=== PATIENT | female | born 1950 | race Caucasian/White ===

== ENCOUNTER 2023-11-07 12:06 | Emergency (ER) | payer MEDICARE, SELFPAY ==
[2023-11-07 12:10] VITALS: BP 120/72
--- NOTE | 2023-11-07 12:53 | ED.GENMED ---
Addendum entered and electronically signed by Jose Jaramillo PA-C 11/10/23 07:13:
MSSA on wound culture. On Doxy. No change needed.
Original Note:
History of Present Illness
General
Chief Complaint: Skin Problem
Source: patient and family
Exam Limitations: none
Time Seen by Provider: 11/07/23 12:32
Travel History
Have you had any contact with someone who has COVID-19?: No
Do you have any symptoms of coronavirus? Fever > 100 degrees, chills, cough, shortness of breath, sore throat, loss of taste or smell, muscle aches, or headache?: No
History of Present Illness
History of Present Illness:
73-year-old female who presents with a draining low back wound. The patient admits that she has had it for 10 months. The patient states she initially had a wound to the right low back that she thought was an infection in the site of her previous
trauma. The patient states that about 1 month ago the low back midline wound 'popped' and has been draining ever since. She presents because she spoke with family who advised her to come get it checked out. No fevers. No injury. She has had a
pilonidal cyst in the past.
Past History
Past History
ED Past Medical History: Arrthythmia (paroxysmal atrial fibrillation), GERD, HTN, Hypercholesterolemia and Psychiatric (depression)
ED Past Surgical History: Cholecystectomy and Gynecological (BTL)
Social History
Tobacco: Non-smoker
Employment: Employed
Phy Exam
Physical Exam
Physical Exam:
CONSTITUTIONAL Vital signs reviewed, Patient alert and oriented to person, place and time. Well-appearing
HEAD atraumatic, normocephalic.
EYES eyelids normal to inspection, Extraocular muscles intact, Conjunctiva normal, Sclera normal.
NECK normal range of motion, Trachea midline, no jugular venous distention.
RESP no respiratory distress
BACK No obvious deformities, small less than 1 cm rounded wound just to the right of the midline in the area of the L5 region with no surrounding cellulitis but clear pustulous drainage. There is a palpable cavity that can be emptied of pus
during exam. There is no induration. There is no surrounding cellulitis.
UPPER EXTREMITY Gross Range of motion normal, gross motor strength normal
LOWER EXTREMITY Gross range of motion normal, Gross motor strength normal
NEURO Speech normal, No focal motor deficits include, Delano coma scale 15, Memory normal, Cranial Nerves intact to screening exam.
SKIN Skin warm, dry, and normal in color.
PSYCHIATRIC Patient oriented to person place and time, Normal affect.
Course
Orders/Labs/Results
Orders:
Orders
11/07/23 12:50
Wound/Abscess/Other Culture Stat
SOFIYA Source: Abscess
Specimen Description:
Comment: low midline back
11/07/23 12:51
Doxycycline [Vibramycin] 100 mg PO NOW STA
Vital Signs
Initial and Last Documented VS:
Initial Vital Signs
Temp Pulse Resp BP Pulse Ox
98.5 F 72 18 120/72 96
11/07/23 12:10 11/07/23 12:10 11/07/23 12:10 11/07/23 12:10 11/07/23 12:10
Last Documented Vital Signs
Temp Pulse Resp BP Pulse Ox
98.5 F 72 18 120/72 96
11/07/23 12:10 11/07/23 12:10 11/07/23 12:10 11/07/23 12:10 11/07/23 12:10
MDM/Problems Addressed
MDM/Problems Addressed:
Abscess
*Pulse Oximetry
Patient hypoxic: no
*Critical Care Note
Total Time (30-74mins, 75-104mins- exclusive of procedures): Not Applicable
Data Reviewed
Source: patient and family
Further Testing Considered But Not Given:
Consider labs but patient is well-appearing and symptoms have been ongoing for 1 month
Update Note
Update Note:
Low back draining wound. Suspect infected cystic structure. Clearly open and draining without surrounding cellulitis. I think it is reasonable for warm compresses, antibiotics and outpatient follow-up.
ED Attending Note
-
Portions of this chart may have been created with voice recognition software.� Occasional wrong word or��sound alike� substitutions may have occurred due to the inherent limitations of voice recognition software.
Discharge Plan
Departure
Patient Disposition: Home (Routine Discharge)
Date of Disposition: 11/07/23
Time of Disposition: 12:56
Patient with high blood pressure during this ER visit?: No
Discharge Problem:
Abscess
Instructions: Skin Abscess
Prescriptions:
New
doxycycline monohydrate 100 mg capsule
100 mg PO BID Qty: 20 0RF
No Action
sotalol 80 mg Tablet
80 mg PO BID
sertraline 100 mg Tablet
100 mg PO QPM
loperamide 2 mg Tablet
6 mg PO PRN PRN (Reason: Loose Stools)
pravastatin 80 mg Tablet
80 mg PO QPM
amitriptyline 10 mg Tablet
10 mg PO HS
omeprazole 20 mg Capsule,Delayed Release(Dr/Ec)
20 mg PO BID
diphenhydramine-acetaminophen [Tylenol PM Extra Strength] 25-500 mg Tablet
1 tab PO HS PRN (Reason: Insomnia/pain)
fluticasone propionate [Flonase Allergy Relief] 50 mcg/actuation [place],Suspension
2 spray INTRANASAL DAILY PRN (Reason: allergy symptoms)
Eliquis 5 mg Tablet
5 mg PO BID
Hold Instructions: Resume on 10/13/22. OKAY to resume Friday10/13/2022 EVENING dose
Primatene Mist 0.125 mg/actuation Hfa Aerosol Inhaler
1 puff INHALATION PRN PRN (Reason: SOB)
acetaminophen [acetaminophen] 325 mg tablet
650 mg PO Q4HPRN PRN (Reason: mild pain) Qty: 1 0RF
tramadol 50 mg tablet
25 - 50 mg PO Q6HPRN PRN (Reason: severe pain/breakthrough pain) Qty: 5 0RF
Referrals:
Matilde Linder CRNP [Family Provider] -
Activity Restrictions/Additional Instructions:
Please see your doctor in the next 3 days for follow-up and reevaluation of your wound. Please apply warm compresses as discussed 3 times a day. Return immediately for fevers, increased redness, increased pain or any other concerns.
Interventions
Interventions:
*General Assessment Last Done: 11/07/23 12:10
*ED COVID-19 Vaccine History Last Done: 11/07/23 12:10
[2023-11-07] MEDS: VIBRAMYCIN 100 MG PO (12:59)
== END 2023-11-07 13:18 | disposition home or self-care (01) ==
LOC: EMR 12:06
PROVIDERS: EMERGENCY PHYSICIAN Emergency Medicine; FAMILY PHYSICIAN Nurse Practitioner Family
DX: L02.212 Cutaneous abscess of back [any part, except buttock and flank] (principal)
CPT/HCPCS: 99283; 87070; 87147; 87186; 87205